=== PATIENT | male | born 1965 | race Caucasian/White ===

== ENCOUNTER 2017-03-30 05:13 | Emergency (ER) | payer BC ==
--- NOTE | ~2017-03-30 | CT4 ---
[facility] A Service of [facility] RADIOLOGY TEXT RESULTS PATIENT: ZACH BENITEZ LOCATION: [facility] : 61 UNIT #: [id number] AGE: [address]: Armando Quan MD SEX: M ORDER DR: [id number] [facility]. [place], [place] [address] [id number] MR#: [id number] Acc #: [id number] NAME: ZACH BENITEZ : 1965 SEX: M STUDY DATE/TIME: 03/30/2017 5:44 UNIT: [facility] ROOM: STUDY DESCRIPTION: CT Abd and Pelv Wo Cont Attending Physician: Armando Quan M.D. Ordering Physician: Moises Kimball M.D. Primary Care Physician: Primary Care Physician No MEDICAL IMAGING REPORT This report is preliminary unless electronic signature is present EXAM CT abdomen and pelvis without IV contrast COMPARISON None INDICATIONS 48-year-old male with right-sided flank pain, nausea and emesis since today. History of renal calculi. FINDINGS Axial CT imaging abdomen and pelvis was performed without IV contrast. Coronal and sagittal reformats were constructed. The CT exam was performed with one or more of the following radiation dose reduction techniques: automatic exposure control, adjustment of mA and/or kV according to patient size, and iterative reconstruction. Lack of IV contrast limits evaluation of adenopathy, vasculature and viscera. Very small fat-containing umbilical hernia. Multilevel degenerative facet disease at the of the lower lumbar spine, mild. Advanced degenerative disc disease at L5-S1. There are posterior disc protrusions and/or disc osteophyte complexes at all levels of the lumbar spine as well as at T12-L1. Multilevel Schmorl node formation of the lower thoracic spine. Mild thoracolumbar dextroscoliosis. Irregular appearing 7 mm nodule in the right lower lobe. There is band-like atelectasis in the lingula and left lower lobe with a pleural-based rounded nodular density, possibly reflecting round atelectasis. This measures up to 1.2 cm. Small hiatal hernia. [facility] A Service of [facility] RADIOLOGY TEXT RESULTS PATIENT: ZACH BENITEZ [facility] #: [id number] : 61 UNIT #: [id number] AGE: [address]: Armando Quan MD SEX: M ORDER DR: Unenhanced liver, gallbladder, pancreas, spleen are unremarkable. There is a right adrenal nodule measuring up to 2.9 cm with Hounsfield units of 7 consistent with a benign lipid rich adenoma. There is also a nodule in the left adrenal gland measuring 3.2 cm x 2 cm with negative internal Hounsfield units either reflecting a lipid rich adenoma or possibly a benign myelolipoma. Nonobstructive calculus in the left kidney. There is [id number] right hydronephrosis with moderate proximal right hydroureter due to obstructive calculus in the mid-right ureter measuring up to 5 mm. There is associated right-sided perinephric and periureteral stranding. No other ureteral calculi. Urinary bladder is unremarkable. Prostate gland is enlarged measuring up to 5.5 cm transverse with central prostatic calcifications, nonspecific finding perhaps related remote prostatitis. No evidence of bowel obstruction. There are a few appendicoliths at the tip of the appendix. No evidence of acute appendicitis. Abdominal aorta is normal in course and caliber. There are diffuse calcifications of the abdominal aorta as well as the iliac and femoral artery. Calcification also involve the origins of the celiac, superior mesenteric and bilateral renal arteries. Scattered mesenteric, and retroperitoneal lymph nodes, not pathologically enlarged by CT size criteria and likely reactive. IMPRESSION 1. There is [id number] right hydronephrosis due to an obstructive 5 mm calculus in the right mid ureter. There is associated right perinephric and periureteral stranding. 2. Nonobstructive left renal calculus. 3. Single benign adrenal nodules as described in the body of the report. 4. Multilevel degenerative disc disease of the lumbar spine. 5. 7-mm noncalcified nodule in the right lower lobe as well as a 1.2 cm pleural-based nodular density left lower lobe, possibly reflecting round atelectasis. Correlation with outside CT imaging of the chest would be helpful to document stability. If this is not present or available then followup CT chest without IV contrast would be recommended in 3 months to document stability. 6. Small hiatal hernia. 7. Prostatic hypertrophy with central prostatic calcifications. While this could represent benign prostatic hypertrophy with calcifications due to remote prostatitis, prostatic neoplasm cannot be excluded. Consider correlation with serum PSA. 8. Diffuse arterial calcifications in the abdomen and pelvis involving multiple branch vessels of the abdominal aorta. 1. Dictated by... Bill Taylor M.D. THIS IS AN ELECTRONICALLY VERIFIED REPORT Bill Taylor M.D. at 04/06/2017 3:55 PM [facility] A Service of [facility] RADIOLOGY TEXT RESULTS PATIENT: ZACH BENITEZ [id number] : 61 UNIT #: [id number] AGE: [address]: Armando Quan MD SEX: M ORDER DR: Akin TD: 03/30/2017 11:41 JOB #: [id number] MEDICAL IMAGING REPORT Page 1 of 1 COPY
[2017-03-30 06:00] LABS: URINE SOURCE CLEAN CATCH
[2017-03-30 06:03] LABS: BASOPHIL# 0.1 X10e3 (0-0.3); BASOPHIL% 0.5 % (0-2.5); EOSINOPHIL% 0.2 % (0.0-7.0); HEMATOCRIT 46.5 % (38.0-50.0); HEMOGLOBIN 14.9 gm/dL (13.0-16.0); LYMPHOCYTE# 0.7 X10e3 (1.0-3.5); MEAN CELL VOLUME 82.7 FL (83-96); MEAN CORPUSCULAR HEMOGLOBIN 26.5 PG (28-34); MEAN CORPUSCULAR HGB CONC 32.1 g/dL (30-36); MEAN PLATELET VOLUME 7.4 FL (6.5-11.5); MONOCYTE# 0.7 X10e3 (0-1.0); MONOCYTE% 6.3 % (3.0-12.0); NEUTROPHIL# 10.2 X10e3 (1.5-7.1); PLATELET COUNT 376 X10e3 (140-420); RED BLOOD COUNT 5.63 X10e (3.90-5.60); RED CELL DISTRIBUTION WIDTH 15.7 % (11.0-15.5); WHITE BLOOD COUNT 11.7 X10e3 (4.0-10.5)
[2017-03-30 06:06] LABS: DIFF IND NO
[2017-03-30 06:27] LABS: URINE APPEARANCE CLOUDY; URINE BILIRUBIN NEG (NEG); URINE BLOOD 1+ (NEG); URINE COLOR YELLOW; URINE GLUCOSE NEG (NEG); URINE KETONE NEG (NEG); URINE LEUKOCYTE ESTERASE NEG (NEG); URINE NITRATE NEG (NEG); URINE PROTEIN TRACE (NEG); URINE SPECIFIC GRAVITY 1.012 (1.003-1.035); URINE UROBILINOGEN 0.2 MG/DL (NEG)
[2017-03-30 06:29] LABS: CULTURE INDICATED? NO; U HYALINE CASTS AUWI 0-2 /[LPF]; URINE BACTERIA AUWI NEG (NEGATIVE); URINE SQUAMOUS EPITHELIAL CELL NONE SEEN /[HPF]; UWBCS1 AUWI 0-2 (0-5)
[2017-03-30 06:30] LABS: ALBUMIN SERUM 4.2 g/dL (3.5-5.0); BILIRUBIN, DIRECT 0.1 mg/dL (0.0-0.2); BILIRUBIN,INDIRECT 0.2 mg/dL (0.0-0.9); BILIRUBIN,TOTAL 0.3 mg/dL (0.2-2.0); BUN/CREATININE RATIO 10.83; CALCIUM SERUM 9.5 mg/dL (8.4-10.2); CREATININE SERUM 1.2 mg/dL (0.6-1.4); GLOM FILT RATE Estimated 68.6 mL/min (>60); POTASSIUM 4.1 mmol/L (3.5-5.1); PROTEIN TOTAL SERUM 8.3 g/dL (6.0-8.3)
== END 2017-03-30 07:43 | disposition home or self-care (01) ==
LOC: CED 05:13
PROVIDERS: Emergency Medicine
DX: N13.2 Hydronephrosis with renal and ureteral calculous obstruction (principal); F17.200 Nicotine dependence, unspecified, uncomplicated; Z87.442 Personal history of urinary calculi
CPT/HCPCS: 36415; 74176; 80048; 80076; 81003; 83690; 85025; 96361; 96374; 96375; 99284; J1885; J2405; J3010